=== PATIENT | male | born 1965 | race Caucasian/White ===

== ENCOUNTER 2022-10-13 10:05 | Day surgery (SDC) | payer OTHER, SELFPAY ==
[2022-10-13] VITALS (7 sets, daily range): BP systolic 109–142; BP diastolic 61–86; PULSE 63–68; RESP 16–18; TEMP 36.3–37.1; O2SAT 94–99; BMI 29.1
[2022-10-13] MEDS: Lactated Ringers 1,000 ML 15 ML IV (10:37)
--- NOTE | 2022-10-13 10:38 | HP.PCM_ITS ---
History and Physical Date of Admission: 10/13/22 57 M who presents to the office today for a consult. PMH High Cholesterol managed with Lipitor, Hypertension stable on maxide and amlodipine, GERD taking prilosec. Colon Cancer Patient referred by PCP Dr. Ramires for GERD without esophagitis and for possible EGD and screening colonoscopy. Last EGD/Colonoscopy was on 09/30/16. Patient reports that his GERD is well controlled with omprazole 20 mg QD. Denies any other GI symptoms. States that his last colonoscopy found polyps. ROS Const Constitutional: No fatigue, fever(s), frequent falls, headache(s) or weight change ENT ENT: No headache(s) or difficulty swallowing Cardio Cardiology: No leg pain with exertion Gastro GI: No abdominal pain, bloating, change in bowel habits, constipation, diarrhea, heartburn, difficulty swallowing, Vomiting blood/hematemesis, Blood in stool, nausea/dyspepsia or vomiting Musc Musculoskeletal: No abnormal gait, joint pain, back pain, joint swelling, muscle cramps, muscle weakness, numbness, stiffness, tingling, Arthritis, sciatica, leg pain at night or leg pain with exertion Skin Skin: No dry skin, lesions, itchy eyes or rash Neuro Neurology: No abnormal gait, dizziness, frequent falls, headache(s), numbness, tingling, tremor(s), Increased tone in limbs, paralysis or seizures Psych Psychiatric: No anxiety, No depression, No paranoia, No Behavioral Problems, No Compulsive Behavior, No hyperactivity, No inattentiveness, No obsessions/compulsions, No Temper Tantrums and No suicidal ideation Endo Endocrine: No fatigue or weight change Aller/Imm Allergy/Immunologic: No itchy eyes Larry/Lymp Hematologic/Lymphatic: No easy bleeding or easy bruising Exam Const General: cooperative and comfortable Nutritional Appearance: average body habitus and well nourished [facility] Head: normal to inspection Ears: hearing grossly normal bilaterally Nose: external nose normal Face and sinus: normal facial exam Mouth: oral mucosae normal Throat: posterior oropharynx normal Eyes General: appearance normal, both eyes and all related structures Neck Neck: normal visual inspection Chest Chest palpation & inspection: normal inspection of the chest and normal palpation of entire chest wall Resp Effort & Inspection: normal respiratory effort Auscultation: Bilateral: Clear to Auscultation Cardio Palpation: normal PMI Rate: regular rate Rhythm: regular rhythm GI Inspection: normal to inspection Auscultation: normal bowel sounds Percussion: normal to percussion Palpation: no hepatosplenomegaly Skin General: no rashes or lesions noted Neuro General: patient alert Extrem General: normal to inspection Psych Affect: normal affect Quality Reporting Tobacco Screening ([facility] 138) Smoking Status: Never smoker Assessment and Plan Assessment and Plan (1) FH: colon cancer: Status: Acute Plan: His mother was diagnosed with colon cancer later in life. It was not resectable. He does not have any other family members with colon cancer. His mother also had breast cancer. (2) H/O adenomatous polyp of colon: Status: Acute Plan: On his previous colonoscopy he was discovered to have adenomatous polyps. He will undergo a surveillance colonoscopy. He was explained alternatives, risk, benefits including outstanding bleeding, infection, sepsis, perforation, need for emergent surgery . He will have an ASA of 2. (3) GERD (gastroesophageal reflux disease): Status: Acute
--- NOTE | 2022-10-13 11:49 | OP.CCLET_ITS ---
10/13/2022 Parker Ramires Re : Colonoscopy procedure for Calin Meade Dear Keyla This procedure was performed on Thursday, October 13, 2022. My impressions and recommendations are as follows: Impressions : - Diverticulosis in the recto-sigmoid colon and in the sigmoid colon. - No specimens collected. Recommendations : - Discharge patient to home. - Resume previous diet. - Continue present medications. - Repeat colonoscopy in 10 years for screening purposes. My findings are described in the full procedure note, which is enclosed. If I can be of further assistance, please feel free to contact me at . Sincerely, Alexis Chung, 10/13/2022 11:48:52 AM This report has been signed electronically.
--- NOTE | 2022-10-13 11:49 | OP.COLON_ITS ---
Patient Name: Calin Meade Procedure Date: 10/13/2022 11:19 AM Date of : 1965 Age: 57 Procedure: Colonoscopy Indications: Screening for colorectal malignant neoplasm Providers: Alexis Chung DO Referring MD: Alexis Chung DO Medicines: Monitored Anesthesia Care Patient Profile: This is a 57 year old male. Refer to note in patient chart for documentation of history and physical. Last Colonoscopy: date unknown. Unable to locate last colonoscopy report. Complications: No immediate complications. Procedure: Pre-Anesthesia Assessment: - Prior to the procedure, a History and Physical was performed, and patient medications and allergies were reviewed. The patient is competent. The risks and benefits of the procedure and the sedation options and risks were discussed with the patient. All questions were answered and informed consent was obtained. Patient identification and proposed procedure were verified by the physician in the pre-procedure area. Mental Status Examination: alert and oriented. Airway Examination: normal oropharyngeal airway and neck mobility. CV Examination: normal. Prophylactic Antibiotics: The patient does not require prophylactic antibiotics. Prior Anticoagulants: The patient has taken no anticoagulant or antiplatelet agents. ASA Grade Assessment: II - A patient with mild systemic disease. After reviewing the risks and benefits, the patient was deemed in satisfactory condition to undergo the procedure. The anesthesia plan was to use monitored anesthesia care (MAC). Immediately prior to administration of medications, the patient was re-assessed for adequacy to receive sedatives. The heart rate, respiratory rate, oxygen saturations, blood pressure, adequacy of pulmonary ventilation, and response to care were monitored throughout the procedure. The physical status of the patient was re-assessed after the procedure. After I obtained informed consent, the scope was passed under direct vision. Throughout the procedure, the patient's blood pressure, pulse, and oxygen saturations were monitored continuously. The Colonoscope was introduced through the anus and advanced to the cecum, identified by appendiceal orifice and ileocecal valve. The colonoscopy was performed without difficulty. The patient tolerated the procedure well. The quality of the bowel preparation was good. The ileocecal valve, appendiceal orifice, and rectum were photographed. Scope In: 11:30:43 AM Scope Withdrawal Time 0 hours 9 minutes 48 seconds Scope Out: 11:44:43 AM Total Procedure Duration Time 0 hours 14 minutes 0 seconds Findings: The perianal and digital rectal examinations were normal. A few small-mouthed diverticula were found in the recto-sigmoid colon and sigmoid colon. Impression: - Diverticulosis in the recto-sigmoid colon and in the sigmoid colon. - No specimens collected. Recommendation: - Discharge patient to home. - Resume previous diet. - Continue present medications. - Repeat colonoscopy in 10 years for screening purposes. Procedure Code(s): --- Professional --- G0121, Colorectal cancer screening; colonoscopy on individual not meeting criteria for high risk CPT copyright 2021 [employer]. All rights reserved. The codes documented in this report are preliminary and upon real estate account executive review may be revised to meet current compliance requirements. Alexis Chung DO 10/13/2022 11:48:52 AM This report has been signed electronically. Number of Addenda: 0 Note Initiated On: 10/13/2022 11:19 AM
== END 2022-10-13 12:24 | disposition home or self-care (01) ==
LOC: EN 10:09 → AC 10:12
PROVIDERS: PCP Family Medicine; Referring Provider Family Medicine; Visit Provider Internal Medicine Gastroenterology
PROC: 0DJD8ZZ Inspection of Lower Intestinal Tract, Via Natural or Artificial Opening Endoscopic (ICD-10-PCS; CPT 45378; principal; 2022-10-13 11:10)
DX: K57.30 Diverticulosis of large intestine without perforation or abscess without bleeding (principal); K21.9 Gastro-esophageal reflux disease without esophagitis; E78.00 Pure hypercholesterolemia, unspecified; I10 Essential (primary) hypertension; Z79.899 Other long term (current) drug therapy; Z80.0 Family history of malignant neoplasm of digestive organs
CPT/HCPCS: 45378; J7120; J2405

== ENCOUNTER → 2023-08-14 | Outpatient (CLI) | payer OTHER, SELFPAY ==
--- NOTE | 2023-08-14 14:55 | ECHOCS_ITS ---
Reason For Study: MURMUR Procedure This was a 2D Doppler, Color Flow transthoracic echocardiogram. The study was technically difficult. Contrast injection was performed. Exam performed in department. Left Ventricle Normal LV size. Mild concentric left ventricular hypertrophy. Left ventricular systolic function is normal. The left ventricular ejection fraction is 70 %. Valsalva LV gradient 25 mmHg. No regional wall motion abnormalities noted. Right Ventricle Normal RV size. Normal systolic function. Atria Normal left atrium. Normal right atrium. Bubble contrast study negative for right to left interatrial shunt. Mitral Valve Normal mitral valve. Systolic anterior motion of the mitral valve. Mild (1+) eccentric mitral valve insufficiency. Tricuspid Valve Normal tricuspid valve. Aortic Valve Normal aortic valve. Trisinus/trileaflet aortic valve. Pulmonic Valve Normal pulmonic valve. Great Vessels Normal aortic root. The pulmonary artery is normal size. Inferior vena cava collapse with respiration. Pericardium/Pleural No pericardial effusion. Medication 22 gauge I.V. with prn adaptor inserted into right arm. Diluted definity 1.5ml given slow IV push to enhance endocardial definition. Performed a rapid injection of agitated mix of 9 cc saline and 1cc air to assess for atrial septal defect. MMode/2D Measurements & Calculations LVIDd: 4.0 cm IVSd: 1.2 cm Ao root diam: 3.9 cm LVIDs: 2.3 cm LVPWd: 1.3 cm RVDd: 3.4 cm FS: 41.4 % LAV(MOD-bp): 51.9 ml LVAd ap4: 36.3 cm2 SV(MOD-sp4): 90.0 ml LAV(MOD-bp) Indexed: 24.5 ml/m2 LVLd ap4: 9.3 cm LAV(MOD-sp2): 68.7 ml EDV(MOD-sp4): 122.6 ml LAV(MOD-sp4): 38.2 ml EDV(sp4-el): 120.5 ml LVAs ap4: 16.5 cm2 LVLs ap4: 7.0 cm ESV(MOD-sp4): 32.6 ml ESV(sp4-el): 33.1 ml EF(MOD-sp4): 73.4 % EF(sp4-el): 72.6 % SV(sp4-el): 87.5 ml LA A4 area: 15.2 cm2 LA dimension(2D): 3.4 cm RA A4 area: 10.4 cm2 TAPSE: 2.6 cm Time Measurements MV dec time: 0.21 sec Doppler Measurements & Calculations MV E max jose: 84.9 cm/sec Lat Peak E' Jose: 8.1 cm/sec Med Peak E' Jose: 6.6 cm/sec MV A max jose: 79.9 cm/sec E/E' lat: 10.5 E/E' med: 12.8 MV E/A: 1.1 MV V2 max: 90.2 cm/sec MV dec slope: 398.8 cm/sec2 Ao V2 max: 145.4 cm/sec MV max P.3 mmHg Ao max P.5 mmHg MV V2 mean: 58.1 cm/sec Ao V2 mean: 102.6 cm/sec MV mean P.5 mmHg Ao mean P.8 mmHg MV V2 VTI: 32.9 cm Ao V2 VTI: 32.5 cm AV (velocity ratio): 0.90 LV V1 max: 126.7 cm/sec PA V2 max: 102.6 cm/sec LV V1 max P.4 mmHg PA V2 mean: 67.5 cm/sec LV V1 mean P.2 mmHg LV V1 mean: 96.0 cm/sec LV V1 VTI: 29.2 cm ECHO/Echo Complete W/ Contrast Interpretation Summary Normal LV size. The left ventricular ejection fraction is 70 %. Left ventricular systolic function is normal. Valsalva LV gradient 25 mmHg. Systolic anterior motion of the mitral valve. Mild (1+) eccentric mitral valve insufficiency. Bubble contrast study negative for right to left interatrial shunt. Ordering Physician: Timothy Metcalf Referring Physician: Timothy Metcalf Performed By: Jayne Salinas and Student
== END | disposition home or self-care (01) ==
LOC: CVS 14:56
PROVIDERS: PCP Family Medicine; Referring Provider Internal Medicine Cardiovascular Disease; Visit Provider Internal Medicine Cardiovascular Disease
DX: I35.0 Nonrheumatic aortic (valve) stenosis (principal)
CPT/HCPCS: 93306; Q9957; A4216; C8929

== ENCOUNTER → 2023-09-17 | Outpatient (CLI) | payer OTHER, SELFPAY ==
[2023-09-17 12:43] LABS: Anion Gap 6 (5-15); BUN 16 mg/dL (7-18); BUN/Creat Ratio 13.8 RATIO (10-20); Calcium,Total 9.1 mg/dL (8.5-10.1); Chloride 107 mmol/L (98-107); Creatinine, Serum 1.16 mg/dL (0.70-1.30); EST Glomerular Filtration Rate 69 mL/min (>60); Est Glom Filt Rate - Afr Amer 83 mL/min (>60); Glucose 166 mg/dL (74-106); Potassium 3.5 mmol/L (3.5-5.1); Sodium Level 141 mmol/L (136-145)
== END | disposition home or self-care (01) ==
LOC: LAB 10:45
PROVIDERS: PCP Family Medicine; Referring Provider Internal Medicine Cardiovascular Disease; Visit Provider Internal Medicine Cardiovascular Disease
DX: R94.31 Abnormal electrocardiogram [ECG] [EKG] (principal); I35.0 Nonrheumatic aortic (valve) stenosis
CPT/HCPCS: 36415; 80048

== ENCOUNTER → 2023-09-24 | Outpatient (CLI) | payer OTHER, SELFPAY ==
[2023-09-24 16:15] LABS: Platelet Count 412 K/mm3 (150-450); Reticulocyte Count 1.94 % (0.5-1.5)
[2023-09-24 16:45] LABS: AST(SGOT) 21 U/L (15-37); Alanine Aminotransfer ALT/SGPT 28 U/L (16-61); Albumin, Serum 3.6 g/dL (3.2-5.0); Alkaline Phosphatase 101 U/L (45-117); Anion Gap 6 (5-15); BUN 16 mg/dL (7-18); BUN/Creat Ratio 14.4 RATIO (10-20); CRP 5.63 mg/L (0.0-3.0); Calcium,Total 8.4 mg/dL (8.5-10.1); Chloride 105 mmol/L (98-107); Creatinine, Serum 1.11 mg/dL (0.70-1.30); EST Glomerular Filtration Rate 72 mL/min (>60); Est Glom Filt Rate - Afr Amer 87 mL/min (>60); Ferritin 9 ng/mL (26-388); Globulin 3.5 g/dL (2.2-4.2); Glucose 106 mg/dL (74-106); Iron 34 ug/dL (65-175); Iron Binding Capacity,Total 445 ug/dL (250-450); LDH 200 U/L (87-241); Potassium 3.3 mmol/L (3.5-5.1); Protein, Total 7.1 g/dL (6.4-8.2); Sodium Level 139 mmol/L (136-145)
[2023-09-24 18:24] LABS: Erythrocyte Sedimentation Rate 3 mm/hr (0-20)
== END | disposition home or self-care (01) ==
LOC: LAB 15:17
PROVIDERS: PCP Family Medicine; Referring Provider Internal Medicine Gastroenterology; Visit Provider Internal Medicine Gastroenterology
DX: D64.9 Anemia, unspecified (principal)
CPT/HCPCS: 36415; 80053; 82248; 82728; 82784; 82785; 82941; 83010; 83021; 83516; 83540; 83550; 83615; 84165; 85045; 85652; 85660; 86140; 86256; 86334; 86340; 86880

== ENCOUNTER 2023-09-30 05:56 | Day surgery (SDC) | payer OTHER, SELFPAY ==
[2023-09-30] VITALS (7 sets, daily range): BP systolic 98–145; BP diastolic 62–93; PULSE 69–82; RESP 16; TEMP 36.4–36.6; O2SAT 92–96; BMI 28.3
--- NOTE | 2023-09-30 | EGD_PTH ---
PATIENT: YESICA AVINA LOC: [facility] U#:[id number] AGE/SX: 58/M ROOM: RE09/30/[address]: Dr. Alexis Chung DO : 1965 BED: DIS: 09/30/2023 SPEC #: [id number] RECD: 09/30/23 10:24 STATUS: ANA DARIEL #: [id number] EARLINE: 09/30/23 00:[address]: Alexis Chung DEPT: SURGICAL PATHOLOGY RECD BY: Baldemar Hinojosa ENTERED: 09/30/23 11:51 SP TYPE: EGD BIOPSY CATHLEEN DR: Dr. Parker Ramires DO Tissues: Gastric mucous membrane Procedures: Surgery Specimen Level IV HEADER OPERATION: EGD biopsy PRE-OP DIAGNOSIS: Anemia TISSUE SUBMITTED: Gastric antral polyp biopsy MICROSCOPIC DIAGNOSIS Gastric antral polyp, biopsy: Fragments of hyperplastic/inflammatory polyp with focal ulceration. See comment. FABRICE/ 10/01/2023 COMMENT The results of immunohistochemistry for Helicobacter pylori will be reported separately ([id number]). MICROSCOPIC DESCRIPTION Slides are reviewed. GROSS DESCRIPTION Received in fixative is one container labeled with the patient's name and designated Gastric antral polyp biopsy. The specimen consists of multiple irregular fragments of light garcia soft tissue that in aggregate measure 1.0 x 0.3 x 0.1 cm. The specimen is totally submitted in one cassette. 09/30/2023 TC:5 CPT:87673
[2023-09-30] MEDS: Lactated Ringers 1,000 ML 15 ML IV (06:26)
--- NOTE | 2023-09-30 06:32 | HP.PCM_ITS ---
History and Physical Date of Admission: 09/30/23 YESICA AVINA, is a 58 M who presents to the office today for follow up. PMH High Cholesterol managed with Lipitor, Hypertension stable on maxide and amlodipine, GERD taking prilosec. Colon Cancer Patient referred by PCP Dr. Ramires for GERD without esophagitis and for possible EGD and screening colonoscopy. Last EGD/Colonoscopy was on 09/30/16. Patient reports that his GERD is well controlled with omprazole 20 mg QD. Denies any other GI symptoms. States that his last colonoscopy found polyps. Colonoscopy 10.14.23 Diverticulosis in the recto-sigmoid colon and in the sigmoid colon. No specimens collected. OV 09.24.23 pt states that he is feeling well overall and denies GI symptoms of concern at this time. pt reports regular bm; denies blood in the stool. Pt states that he was referred by Dr Ramires for a low iron. ROS Const Constitutional: Positive for fatigue; No fever(s) or weight change ENT ENT: No difficulty swallowing Gastro GI: No abdominal pain, belching, bloating, change in bowel habits, change in stool character, coffee ground emesis, constipation, cramping, diarrhea, heartburn, difficulty swallowing, feeling full early, excessive flatus, incontinent of stools, Vomiting blood/hematemesis, Blood in stool, loose stools, Black,tarry stools, nausea/dyspepsia, pain with swallowing, vomiting or other Musc Musculoskeletal: No joint pain Skin Skin: No yellowing of the eye or itchy eyes Psych Psychiatric: No anxiety and No depression Endo Endocrine: Positive for fatigue; No weight change Aller/Imm Allergy/Immunologic: No itchy eyes Larry/Lymp Hematologic/Lymphatic: No easy bleeding or easy bruising Exam Const General: cooperative and comfortable Nutritional Appearance: average body habitus and well nourished [facility] Head: normal to inspection Ears: hearing grossly normal bilaterally Nose: external nose normal Face and sinus: normal facial exam Mouth: oral mucosae normal Throat: posterior oropharynx normal Eyes General: appearance normal, both eyes and all related structures Neck Neck: normal visual inspection Chest Chest palpation & inspection: normal inspection of the chest and normal palpation of entire chest wall Resp Effort & Inspection: normal respiratory effort Auscultation: Bilateral: Clear to Auscultation Cardio Palpation: normal PMI Rate: regular rate Rhythm: regular rhythm Other: 3 out of 6 systolic ejection murmur GI Inspection: normal to inspection Auscultation: normal bowel sounds Percussion: normal to percussion Palpation: no hepatosplenomegaly Skin General: no rashes or lesions noted Neuro General: patient alert Extrem General: normal to inspection Psych Affect: normal affect Assessment and Plan Assessment and Plan (1) Anemia: Status: Acute Comment: SMALL RBC'S NO ANEMIA Plan: 58-year-old gentleman with history of systolic ejection murmur secondary to aortic stenosis and LVH on VERNON inhibitor. He also has a history of iron deficiency anemia possibly secondary to angiodysplastic lesions that was dis covered about 15 years ago. Recommendations for him are upper endoscopy to evaluate his upper GI tract and capsule endoscopy. He will also get biochemical workup for his iron deficiency anemia. Orders: Orders Iron Today D64.9 - Anemia, unspecified RENE + Protein Elect, Serum Today D64.9 - Anemia, unspecified Iron Binding Capacity,Total Today D64.9 - Anemia, unspecified LDH Today D64.9 - Anemia, unspecified Ferritin Today D64.9 - Anemia, unspecified Haptoglobin Today D64.9 - Anemia, unspecified Retic Panel Count Today D64.9 - Anemia, unspecified ANCA Today D64.9 - Anemia, unspecified CRP Today D64.9 - Anemia, unspecified Erythrocyte Sed Rate Today D64.9 - Anemia, unspecified Immunoglobulins G/A/M/E Today D64.9 - Anemia, unspecified Anti-Parietal Cell AB, QN Today D64.9 - Anemia, unspecified Gastrin, Serum Today D64.9 - Anemia, unspecified Intrinsic Factor Ab Today D64.9 - Anemia, unspecified Hemoglobinopathy Profile Today D64.9 - Anemia, unspecified OFI Hemoglobin Electrophoresis Today D64.9 - Anemia, unspecified Direct Antiglobulin Alfredo JEFF Today D64.9 - Anemia, unspecified Bilirubin, Direct Today D64.9 - Anemia, unspecified Comprehensive Metabolic Profil Today D64.9 - Anemia, unspecified I have examined the patient and the H&P has been reviewed. There are no clinical changes since date of exam.
--- NOTE | 2023-09-30 06:36 | PCM.PRE.AN2 ---
ASA Classification* ASA Classification ASA Classification: 3 Assessment & Plan Anesthesia* Anesthesia Assessment Anesthesia Assessment: Discussed sedation and/or anesthesia options, risks, benefits, and alternatives with patient/parents/legal guardian/POA. Questions invited. The patient/parents/legal guardian/POA seems to understand and agrees to proceed with anesthesia plan. Reviewed the physical assessment, medical history, allergy history and patient home medications list prior to surgery/procedure/anesthetic and documented any changes. Performed airway and anesthesia risk assessments. Anesthesia Type Anesthesia Type: MAC Anesthesia Focused Assessment* Temperature: 97.9 F Pulse Rate: 69 Blood Pressure: 145/75 Respiratory Rate: 16 Pulse Ox: 96 Airway Assessment Mouth opens: >3 cm Mallampati Score: II Focused Labs Anesthesia Preop lab: CBC CHEMISTRY Potassium 3.3 mmol/L (3.5-5.1) L 09/24/23 15:28 Sodium 139 mmol/L (136-145) 09/24/23 15:28 BUN 16 mg/dL (7-18) 09/24/23 15:28 Creatinine 1.11 mg/dL (0.70-1.30) 09/24/23 15:28 Glucose 106 mg/dL (74-106) 09/24/23 15:28 COAG Pre-Assessment Diagnosis/Proposed Procedure Planned Operative Procedure(s): EGD Anesthesia History Anesthesia History - architect internship: Anesthesia History - architect internship Hx Hospitalization No 09/29/23 10:23 Any Problems With Anesthesia No 09/29/23 10:23 Cholinesterase deficiency No 09/29/23 10:23 You/Your Family Experience No 09/29/23 10:23 fever (hyperthermia) with Relationship Recent Exposure to Contagious No 09/30/23 06:23 Disease Does patient have nerve No 09/29/23 10:23 stimulator Patient instructed to have device shut off --Does patient have Pacemaker No 09/30/23 06:23 or ICD? When Was Last Pacemaker Check QUESTION #4 FULL TEXT: You/Your Family Experience fever (hyperthermia) with Anesthesia Last Oral Intake Last Oral intake: Last Oral Intake NPO since 22:00 09/30/23 06:23 Meds taken in AM with sips of No 09/30/23 06:23 water? Meds patient instructed to take am of surgery PONV PONV - architect internship: PONV - architect internship Female No 09/29/23 10:23 HX of Motion Sickness No 09/29/23 10:23 HX of N/V After Surgery No 09/29/23 10:23 Non-Smoker Yes 09/29/23 10:23 Duration of Surgery greater No 09/29/23 10:23 than 60 minutes Number of Risk Factors 1 09/29/23 10:23 PONV Score Low Risk 09/29/23 10:23 Height & Weight Height & Weight: Anesthesia: Height & Weight Height 5 ft 11 in 09/30/23 06:23 Weight: 92 kg 09/30/23 06:23 Body Mass Index (BMI) 28.3 09/30/23 06:23 Respiratory Assessment Respiratory Assessment - architect internship: Respiratory Tract Infection Hx - architect internship Hx Respiratory Tract Infection No 09/29/23 10:23 STOP Sleep Apnea STOP Sleep Apnea - architect internship: STOP Sleep Apnea - architect internship Hx Hypertension Yes: CONTROLLED WITH MEDS 09/29/23 10:23 Hx Sleep Apnea No 09/29/23 10:23 CPAP BIPAP Do you snore loudly (louder No 09/29/23 10:23 than talking or can be heard Do you often feel tired/ No 09/29/23 10:23 fatigued/ sleepy during daytime? Has anyone observed you stop No 09/29/23 10:23 breathing during sleep? STOP Results Negative 09/29/23 10:23 QUESTION #5 FULL TEXT : Do you snore loudly (louder than talking or can be heard through closed doors)? Tobacco Use History Tobacco Use History - architect internship: Tobacco Use History - architect internship Tobacco Use Smoking Status Never smoker 09/29/23 10:23 Hx Tobacco Use No 09/29/23 10:23 Years Smoking Packs Smoked per Day Smoking Cessation Date was within the last 15 years Hx Smoking Cessation Date Hx Smoking Cessation Counseling Hematologic Medial History Hematologic Hx - architect internship: Hematologic Medical Hx - memory care program resident Hx of Blood Transfusion No 09/29/23 10:23 Hx of Transfusion in last 3 No 09/29/23 10:23 Months Date of Last Transfusion (if within last 3 months) Ever experience any problems No 09/29/23 10:23 with transfusion(s)? Specify any problems Hx of Preganancy in last 3 N/A 08/13/24 10:23 Months Nurse Filling Out Transfusion NBUCHER 09/29/23 10:23 & Questions: Date: 09/29/23 09/29/23 10:23 Time: 10:24 09/29/23 10:23 Patient unable to answer at this time (ie. confused, unrespo /Reproduction History /Reproductive History - architect internship: /Reproductive Hx- architect internship Hx Now No 09/29/23 10:23 Gestational Age (in weeks): EDC: Hx Hx Para Hx Section SAB No 09/29/23 10:23 Active Medications Active Medications: Current Medications Generic Name Dose Route Start Last Admin Trade Name Freq PRN Reason Stop Dose Admin Lactated Ringer's 1,000 mls @ 15 mls/hr 09/30/23 06:15 09/30/23 06:26 IV 15 mls/hr .Q48H NAILA Administration PFSH Medical History History of echocardiogram Cardiology follow-up encounter Upper GI bleed Hyperglycemia Mild aortic stenosis Abnormal EKG Anemia Hypertriglyceridemia Diverticular disease GERD (gastroesophageal reflux disease) Essential (primary) hypertension Mixed hyperlipidemia Home Medications ?Medication ?Instructions ?Recorded ?Last Taken ?Type atorvastatin 10 mg tablet 10 mg PO DAILY 07/23/22 09/29/23 History omeprazole 20 mg capsule,delayed 20 mg PO DAILY 07/23/22 09/29/23 History release amlodipine 5 mg tablet 10 mg PO DAILY 08/07/23 09/29/23 History losartan 50 mg tablet 50 mg PO DAILY #30 tabs 08/14/23 09/29/23 Rx ferrous sulfate 27 mg iron tablet 27 mg PO BID 09/04/23 09/26/23 History triamterene 75 0.5 tab PO DAILY 09/04/23 09/29/23 History mg-hydrochlorothiazide 50 mg tablet Allergy/AdvReac Type Severity Reaction Status Date / Time No Known Allergies Allergy Verified 09/30/23 06:18 Family History Mother Colon cancer CAD (coronary artery disease) Hypertension Breast cancer Father COPD (chronic obstructive pulmonary disease) Surgical History History of colonoscopy H/O hand surgery Social History Smoking Status: Never smoker alcohol intake: current alcohol intake frequency: other substance use type: does not use caffeine: No Review of Systems (Anesthesia) ROS Narrative System reviewed and no additional complaints, except as documented.
--- NOTE | 2023-09-30 07:00 | IMM_PTH ---
PATIENT: YESICA AVINA LOC: [facility] U#:[id number] AGE/SX: 58/M ROOM: RE09/30/[address]: Dr. Alexis Chung DO : 1965 BED: DIS: 09/30/2023 SPEC #: [id number] RECD: 09/30/23 11:23 STATUS: ANA REQ #: [id number] EARLINE: 09/30/23 07:[address]: Alexis Chung DEPT: IMMUNOHISTOCHEMISTRY RECD BY: Ernst Barber ENTERED: 09/30/23 11:23 SP TYPE: IMMUNO OTHR DR: Dr. Parker Ramires DO Tissues: Gastric mucous membrane Procedures: H Pylori (initial) PHYSICIAN & INSTITUTION [place] [id number] SPECIMEN INFORMATION: Tissue Source: Gastric antral polyp biopsy Clinical Info: Anemia Specimen Number: [id number] CPT code: 54044 METHODOLOGY: Deparaffinized sections of prefer/formalin-fixed tissue or PAP/DQ stained slides are incubated with monoclonal/polyclonal antibodies/oligonucleotide probes. Localization is made via biotin free immunoperoxidase method. Appropriate controls are performed and reacted as expected. Results on target cell population are indicated in the following table: RESULTS: ANTIBODY / CLONE RESULT H Pylori (polyclonal) negative These tests were developed and their performance characteristics determined by [facility]. They may not have been cleared or approved by the U.S. Food and Drug Administration. The FDA has determined that such clearance or approval is not necessary. The above immunohistochemical/dualISH markers are ordered and reviewed by the Pathologist. INTERPRETATION: Gastric antral polyp, biopsy: Negative for Helicobacter pylori organisms. FABRICE/ 10/01/2023
--- NOTE | 2023-09-30 07:35 | PCM.POST.ANE ---
Anesthesia: Postop Eval I Current Vital Signs Temperature: 97.8 F Pulse Rate: 76 Blood Pressure: 119/93 Respiratory Rate: 16 Pulse Ox: 93 Oxygen Delivery Method: Room Air Assessment Airway patent: Yes Spontaneous unlabored respirations: Yes Mental status: Awake and Calm nausea: No Vomiting: No Anesthesia Complication: No Fluid Hydration Crystalloid volume administer (ml): 400 Total IV fluid infused: 400 Progress Note Anesthesia document: Postop Eval 1 completed: Yes
--- NOTE | 2023-09-30 07:37 | OP.EGD_ITS ---
Patient Name: Calin Meade Procedure Date: 09/30/2023 7:05 AM Date of : 1965 Age: 58 Procedure: Upper GI endoscopy Indications: Iron deficiency anemia Providers: DO Jessica Sheffield MD: Parker Ramires Medicines: Monitored Anesthesia Care Patient Profile: This is a 58 year old male. Refer to note in patient chart for documentation of history and physical. Patient has symptoms of chronic dyspepsia. Complications: No immediate complications. Procedure: Pre-Anesthesia Assessment: - Prior to the procedure, a History and Physical was performed, and patient medications and allergies were reviewed. The patient is competent. The risks and benefits of the procedure and the sedation options and risks were discussed with the patient. All questions were answered and informed consent was obtained. Patient identification and proposed procedure were verified by the physician in the pre-procedure area. Mental Status Examination: alert and oriented. Airway Examination: normal oropharyngeal airway and neck mobility. Respiratory Examination: clear to auscultation. CV Examination: normal. Prophylactic Antibiotics: The patient does not require prophylactic antibiotics. Prior Anticoagulants: The patient has taken no anticoagulant or antiplatelet agents except for NSAID medication. ASA Grade Assessment: III - A patient with severe systemic disease. After reviewing the risks and benefits, the patient was deemed in satisfactory condition to undergo the procedure. The anesthesia plan was to use monitored anesthesia care (MAC). Immediately prior to administration of medications, the patient was re-assessed for adequacy to receive sedatives. The heart rate, respiratory rate, oxygen saturations, blood pressure, adequacy of pulmonary ventilation, and response to care were monitored throughout the procedure. The physical status of the patient was re-assessed after the procedure. After obtaining informed consent, the endoscope was passed under direct vision. Throughout the procedure, the patient's blood pressure, pulse, and oxygen saturations were monitored continuously. The Endoscope was introduced through the mouth, and advanced to the second part of duodenum. The upper GI endoscopy was accomplished without difficulty. The patient tolerated the procedure well. Scope In: 7:16:47 AM Scope Out: 7:25:34 AM Total Procedure Duration Time 0 hours 8 minutes 47 seconds Findings: Small (< 5 mm) varices were found in the lower third of the esophagus. They were 5 mm in largest diameter. Multiple 35 mm pedunculated and sessile polyps with bleeding and stigmata of recent bleeding were found in the cardia, in the gastric fundus, in the gastric body, on the greater curvature of the stomach and in the gastric antrum. Biopsies were taken with a cold forceps for histology. Verification of patient identification for the specimen was done. Estimated blood loss was minimal. No gross lesions were noted in the first portion of the duodenum. Impression: - Small (< 5 mm) esophageal varices. - Multiple gastric polyps. Biopsied. - No gross lesions in the first portion of the duodenum. Recommendation: - Discharge patient to home. - Resume previous diet. - Continue present medications. - Await pathology results. - Repeat upper endoscopy in 2 month for retreatment. Removal of these will take about an hour and a half. -Ultrasound of the liver and CT scan abdomen pelvis -Possible genetic testing depending on the etiology of the gastric polyps. If it is hyperplastic then these can be removed endoscopically. If they are adenomas or hamartomas they can also be removed endoscopically but he would need to undergo genetic testing. Procedure Code(s): --- Professional --- 89636, Esophagogastroduodenoscopy, flexible, transoral; with biopsy, single or multiple CPT copyright 2021 [employer]. All rights reserved. The codes documented in this report are preliminary and upon drupal programmer review may be revised to meet current compliance requirements. Alexis Chung DO 09/30/2023 7:36:37 AM This report has been signed electronically. Number of Addenda: 0 Note Initiated On: 09/30/2023 7:05 AM
--- NOTE | 2023-09-30 07:37 | OP.CCLET_ITS ---
09/30/2023 Parker Ramires Re : Upper GI endoscopy procedure for Calin Henriquezforrest Ramires This procedure was performed on Saturday, September 30, 2023. My impressions and recommendations are as follows: Impressions : - Small (< 5 mm) esophageal varices. - Multiple gastric polyps. Biopsied. - No gross lesions in the first portion of the duodenum. Recommendations : - Discharge patient to home. - Resume previous diet. - Continue present medications. - Await pathology results. - Repeat upper endoscopy in 2 month for retreatment. Removal of these will take about an hour and a half. -Ultrasound of the liver and CT scan abdomen pelvis -Possible genetic testing depending on the etiology of the gastric polyps. If it is hyperplastic then these can be removed endoscopically. If they are adenomas or hamartomas they can also be removed endoscopically but he would need to undergo genetic testing. My findings are described in the full procedure note, which is enclosed. If I can be of further assistance, please feel free to contact me at . Sincerely, Alexis Chung, 09/30/2023 7:36:37 AM This report has been signed electronically.
--- NOTE | 2023-09-30 08:26 | PCM.POSTANE2 ---
Anesthesia Postop Eval I Sum Postop Eval Completion status Anesthesia document: Postop Eval 1 completed: Yes Anesthesia Postop Eval I Summary Anesthesia Postop Eval I Summary: Anesthesia Postop Eval I: Assessment Summary Airway patent Yes 09/30/23 07:36 [email or web address] Spontaneous unlabored Yes 09/30/23 07:36 [email or web address] respirations Mental status Awake,Calm 09/30/23 07:36 [email or web address] nausea No 09/30/23 07:36 [email or web address] Vomiting No 09/30/23 07:36 [email or web address] Anesthesia Postop Eval I: Fluid Summary Crystalloid volume administer 400 09/30/23 07:36 [email or web address] (ml) Colloids volume administered ( ml) Blood Product volume administered (ml) Total IV fluid infused 400 09/30/23 07:36 [email or web address] Anesthesia Postop Eval I: Summary Notes Anesthesia Complication No 09/30/23 07:36 [email or web address] Anesthesia Complication Comment: Post-operative progress note Anesthesia: Postop Eval II Evaluation Mental status: Awake Pain Level: 0 nausea: No Vomiting: No Complications Anesthesia Complication: No
== END 2023-09-30 08:11 | disposition home or self-care (01) ==
LOC: EN 05:56 → AC 05:57
PROVIDERS: PCP Family Medicine; Referring Provider Family Medicine; Visit Provider Internal Medicine Gastroenterology
PROC: 0DJ08ZZ Inspection of Upper Intestinal Tract, Via Natural or Artificial Opening Endoscopic (ICD-10-PCS; CPT 43235; principal; 2023-09-30 06:55)
DX: K31.7 Polyp of stomach and duodenum (principal); I85.00 Esophageal varices without bleeding; D50.9 Iron deficiency anemia, unspecified; E78.00 Pure hypercholesterolemia, unspecified; I10 Essential (primary) hypertension; K21.9 Gastro-esophageal reflux disease without esophagitis; Z79.899 Other long term (current) drug therapy
CPT/HCPCS: 43239; 88305; 88342; J7120; J2405

== ENCOUNTER 2023-10-26 05:28 | Day surgery (SDC) | payer OTHER, SELFPAY ==
[2023-10-26] VITALS (7 sets, daily range): BP systolic 85–141; BP diastolic 56–78; PULSE 65–76; RESP 14–18; TEMP 36.2–36.7; O2SAT 91–98; BMI 29.2
--- NOTE | 2023-10-26 | IMM_PTH ---
PATIENT: YESICA AVINA LOC: [facility] U#:[id number] AGE/SX: 58/M ROOM: RE10/26/[address]: Dr. Alexis Chung DO : 1965 BED: DIS: 10/26/2023 SPEC #: [id number] RECD: 10/27/23 11:07 STATUS: ANA REBeverly #: [id number] EARLINE: 10/26/23 00:[address]: Alexis Chung DEPT: IMMUNOHISTOCHEMISTRY RECD BY: Ernst Barber ENTERED: 10/27/23 11:07 SP TYPE: IMMUNO OTHR DR: Dr. Parker Ramires DO Tissues: POLYP Procedures: H Pylori (initial) PHYSICIAN & INSTITUTION [place] [id number] SPECIMEN INFORMATION: Tissue Source: Gastric polyps Clinical Info: Anemia Specimen Number: [id number] CPT code: 16282 METHODOLOGY: Deparaffinized sections of prefer/formalin-fixed tissue or PAP/DQ stained slides are incubated with monoclonal/polyclonal antibodies/oligonucleotide probes. Localization is made via biotin free immunoperoxidase method. Appropriate controls are performed and reacted as expected. Results on target cell population are indicated in the following table: RESULTS: Block - 5 ANTIBODY / CLONE RESULT H Pylori (polyclonal) negative These tests were developed and their performance characteristics determined by [facility]. They may not have been cleared or approved by the U.S. Food and Drug Administration. The FDA has determined that such clearance or approval is not necessary. The above immunohistochemical/dualISH markers are ordered and reviewed by the Pathologist. INTERPRETATION: Gastric polyps, polypectomy: Negative for Helicobacter pylori organisms. FABRICE/ 10/28/2023
[2023-10-26] MEDS: Lactated Ringers 1,000 ML 15 ML IV (06:11)
--- NOTE | 2023-10-26 06:30 | POL_PTH ---
PATIENT: YESICA AVINA LOC: [facility] U#:[id number] AGE/SX: 58/M ROOM: RE10/26/[address]: Dr. Alexis Chung DO : 1965 BED: DIS: 10/26/2023 SPEC #: [id number] RECD: 10/26/23 12:27 STATUS: ANA DARIEL #: [id number] EARLINE: 10/26/23 06:[address]: Alexis Chung DEPT: SURGICAL PATHOLOGY RECD BY: Baldemar Hinojosa ENTERED: 10/26/23 13:14 SP TYPE: Polyp OTHR DR: Dr. Parker Ramires DO Tissues: POLYP Procedures: Surgery Specimen Level IV HEADER OPERATION: EGD with polypectomy and hemastasis PRE-OP DIAGNOSIS: Anemia TISSUE SUBMITTED: Gastric polyps MICROSCOPIC DIAGNOSIS Gastric polyps, polypectomy: Fragments of hyperplastic/inflammatory polyps. See comment. FABRICE/ 10/27/2023 COMMENT The results of immunohistochemistry for Helicobacter pylori will be reported separately ([id number]). MICROSCOPIC DESCRIPTION Slides are reviewed. GROSS DESCRIPTION Received in fixative is one container labeled with the patient's name and designated Gastric polyps. The specimen consists of multiple fragments of garcia-pink congested polyp measuring in aggregate 5.0 x 7.0 x 0.8cm. Largest fragment measures 4.0cm in greatest dimension. Large polyps are bisected or serially sectioned. The entire specimen is submitted in nine cassettes. FABRICE/ 10/26/2023 TC:5 CPT:64407
--- NOTE | 2023-10-26 06:31 | PRE.ANES_ITS ---
ASA Classification* ASA Classification ASA Classification: 2 Assessment & Plan Anesthesia* Anesthesia Assessment Anesthesia Assessment: Discussed sedation and/or anesthesia options, risks, benefits, and alternatives with patient/parents/legal guardian/POA. Questions invited. The patient/parents/legal guardian/POA seems to understand and agrees to proceed with anesthesia plan. Reviewed the physical assessment, medical history, allergy history and patient home medications list prior to surgery/procedure/anesthetic and documented any changes. Performed airway and anesthesia risk assessments. Anesthesia Type Anesthesia Type: MAC Anesthesia Focused Assessment* Temperature: 98.1 F Pulse Rate: 76 Blood Pressure: 141/78 Respiratory Rate: 14 Pulse Ox: 98 Airway Assessment Mouth opens: >3 cm Mallampati Score: II Focused Labs Anesthesia Preop lab: CBC CHEMISTRY Potassium 3.3 mmol/L (3.5-5.1) L 09/24/23 15:28 Sodium 139 mmol/L (136-145) 09/24/23 15:28 BUN 16 mg/dL (7-18) 09/24/23 15:28 Creatinine 1.11 mg/dL (0.70-1.30) 09/24/23 15:28 Glucose 106 mg/dL (74-106) 09/24/23 15:28 COAG Pre-Assessment Diagnosis/Proposed Procedure Planned Operative Procedure(s): EGD, Polyp Removal Anesthesia History 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 When Was Last Pacemaker Check QUESTION #4 FULL TEXT: You/Your Family Experience fever (hyperthermia) with Anesthesia Last Oral Intake Last Oral intake: Last Oral Intake NPO since 00:00 10/26/23 06:09 Meds taken in AM with sips of Yes 10/26/23 06:09 water? Meds patient instructed to amlodipine 10/26/23 06:09 take am of surgery PONV PONV - entry level web developer: PONV - entry level web developer Female No 10/21/23 11:58 HX of Motion Sickness No 10/21/23 11:58 HX of N/V After Surgery No 10/21/23 11:58 Non-Smoker Yes 10/21/23 11:58 Duration of Surgery greater No 10/21/23 11:58 than 60 minutes Number of Risk Factors 1 10/21/23 11:58 PONV Score Low Risk 10/21/23 11:58 Height & Weight Height & Weight: Anesthesia: Height & Weight Height 5 ft 11 in 10/26/23 06:09 Weight: 95.1 kg 10/26/23 06:09 Body Mass Index (BMI) 29.2 10/26/23 06:09 Respiratory Assessment Respiratory Assessment - entry level web developer: Respiratory Tract Infection Hx - entry level web developer Hx Respiratory Tract Infection No 10/21/23 11:58 STOP Sleep Apnea STOP Sleep Apnea - entry level web developer: STOP Sleep Apnea - entry level web developer Hx Hypertension Yes: CONTROLLED WITH MEDS 10/21/23 11:58 Hx Sleep Apnea No 10/21/23 11:58 CPAP BIPAP Do you snore loudly (louder No 10/21/23 11:58 than talking or can be heard Do you often feel tired/ No 10/21/23 11:58 fatigued/ sleepy during daytime? Has anyone observed you stop No 10/21/23 11:58 breathing during sleep? STOP Results Negative 10/21/23 11:58 QUESTION #5 FULL TEXT : Do you snore loudly (louder than talking or can be heard through closed doors)? Tobacco Use History Tobacco Use History - entry level web developer: Tobacco Use History - entry level web developer Tobacco Use Smoking Status Never smoker 10/21/23 11:58 Hx Tobacco Use No 10/21/23 11:58 Years Smoking Packs Smoked per Day Smoking Cessation Date was within the last 15 years Hx Smoking Cessation Date Hx Smoking Cessation Counseling Hematologic Medial History Hematologic Hx - entry level web developer: Hematologic Medical Hx - government clerk Hx of Blood Transfusion No 10/21/23 11:58 Hx of Transfusion in last 3 No 10/21/23 11:58 Months Date of Last Transfusion (if within last 3 months) Ever experience any problems No 10/21/23 11:58 with transfusion(s)? Specify any problems Hx of Preganancy in last 3 N/A 10/21/23 11:58 Months Nurse Filling Out Transfusion VCHRISTIN 10/21/23 11:58 & Questions: Date: 10/21/23 10/21/23 11:58 Time: 11:59 10/21/23 11:58 Patient unable to answer at this time (ie. confused, unrespo /Reproduction History /Reproductive History - entry level web developer: /Reproductive Hx- entry level web developer Hx Now Gestational Age (in weeks): EDC: Hx Hx Para Hx Section SAB No 10/21/23 11:58 Active Medications Active Medications: Current Medications Generic Name Dose Route Start Last Admin Trade Name Freq PRN Reason Stop Dose Admin Lactated Ringer's 1,000 mls @ 15 mls/hr 10/26/23 06:15 10/26/23 06:11 IV 15 mls/hr .Q48H NAILA Administration PFSH Medical History History of echocardiogram Cardiology follow-up encounter Upper GI bleed Hyperglycemia Mild aortic stenosis Abnormal EKG Anemia Hypertriglyceridemia Diverticular disease GERD (gastroesophageal reflux disease) Essential (primary) hypertension Mixed hyperlipidemia Home Medications ?Medication ?Instructions ?Recorded ?Last Taken ?Type atorvastatin 10 mg tablet 10 mg PO DAILY 07/23/22 10/25/23 History omeprazole 20 mg capsule,delayed 20 mg PO DAILY 07/23/22 10/25/23 History release amlodipine 5 mg tablet 10 mg PO DAILY 08/07/23 10/26/23 History losartan 50 mg tablet 50 mg PO DAILY #30 tabs 08/14/23 10/25/23 Rx ferrous sulfate 27 mg iron tablet 27 mg PO BID 09/04/23 10/22/23 History triamterene 75 0.5 tab PO DAILY 09/04/23 10/25/23 History mg-hydrochlorothiazide 50 mg tablet Allergy/AdvReac Type Severity Reaction Status Date / Time No Known Allergies Allergy Verified 10/21/23 11:55 Family History Mother Colon cancer CAD (coronary artery disease) Hypertension Breast cancer Father COPD (chronic obstructive pulmonary disease) Surgical History (Updated 10/21/23 @ 11:58 by Shasta Null) Hx of esophagogastroduodenoscopy History of colonoscopy H/O hand surgery Social History Smoking Status: Never smoker alcohol intake: current alcohol intake frequency: other substance use type: does not use caffeine: No Review of Systems (Anesthesia) ROS Narrative System reviewed and no additional complaints, except as documented.
--- NOTE | 2023-10-26 06:39 | PCM.HP.BLA ---
History and Physical Date of Admission: 10/26/23 YESICA AVINA, is a 58 M who presents to the office today for follow up. PMH High Cholesterol managed with Lipitor, Hypertension stable on maxide and amlodipine, GERD taking prilosec. Colon Cancer Patient referred by PCP Dr. Ramires for GERD without esophagitis and for possible EGD and screening colonoscopy. Last EGD/Colonoscopy was on 09/30/16. Patient reports that his GERD is well controlled with omprazole 20 mg QD. Denies any other GI symptoms. States that his last colonoscopy found polyps. Colonoscopy 10.14.23 Diverticulosis in the recto-sigmoid colon and in the sigmoid colon. No specimens collected. OV 09.24.23 pt states that he is feeling well overall and denies GI symptoms of concern at this time. pt reports regular bm; denies blood in the stool. Pt states that he was referred by Dr Ramires for a low iron. ROS Const Constitutional: Positive for fatigue; No fever(s) or weight change ENT ENT: No difficulty swallowing Gastro GI: No abdominal pain, belching, bloating, change in bowel habits, change in stool character, coffee ground emesis, constipation, cramping, diarrhea, heartburn, difficulty swallowing, feeling full early, excessive flatus, incontinent of stools, Vomiting blood/hematemesis, Blood in stool, loose stools, Black,tarry stools, nausea/dyspepsia, pain with swallowing, vomiting or other Musc Musculoskeletal: No joint pain Skin Skin: No yellowing of the eye or itchy eyes Psych Psychiatric: No anxiety and No depression Endo Endocrine: Positive for fatigue; No weight change Aller/Imm Allergy/Immunologic: No itchy eyes Larry/Lymp Hematologic/Lymphatic: No easy bleeding or easy bruising Exam Const General: cooperative and comfortable Nutritional Appearance: average body habitus and well nourished [facility] Head: normal to inspection Ears: hearing grossly normal bilaterally Nose: external nose normal Face and sinus: normal facial exam Mouth: oral mucosae normal Throat: posterior oropharynx normal Eyes General: appearance normal, both eyes and all related structures Neck Neck: normal visual inspection Chest Chest palpation & inspection: normal inspection of the chest and normal palpation of entire chest wall Resp Effort & Inspection: normal respiratory effort Auscultation: Bilateral: Clear to Auscultation Cardio Palpation: normal PMI Rate: regular rate Rhythm: regular rhythm Other: 3 out of 6 systolic ejection murmur GI Inspection: normal to inspection Auscultation: normal bowel sounds Percussion: normal to percussion Palpation: no hepatosplenomegaly Skin General: no rashes or lesions noted Neuro General: patient alert Extrem General: normal to inspection Psych Affect: normal affect Assessment and Plan Assessment and Plan (1) Anemia: Status: Acute Comment: SMALL RBC'S NO ANEMIA Plan: 58-year-old gentleman with history of systolic ejection murmur secondary to aortic stenosis and LVH on VERNON inhibitor. He also has a history of iron deficiency anemia possibly secondary to angiodysplastic lesions that was discovered about 15 years ago. Recommendations for him are upper endoscopy to evaluate his upper GI tract and capsule endoscopy. He will also get biochemical workup for his iron deficiency anemia. Orders: Orders Iron Today D64.9 - Anemia, unspecified RENE + Protein Elect, Serum Today D64.9 - Anemia, unspecified Iron Binding Capacity,Total Today D64.9 - Anemia, unspecified LDH Today D64.9 - Anemia, unspecified Ferritin Today D64.9 - Anemia, unspecified Haptoglobin Today D64.9 - Anemia, unspecified Retic Panel Count Today D64.9 - Anemia, unspecified ANCA Today D64.9 - Anemia, unspecified CRP Today D64.9 - Anemia, unspecified Erythrocyte Sed Rate Today D64.9 - Anemia, unspecified Immunoglobulins G/A/M/E Today D64.9 - Anemia, unspecified Anti-Parietal Cell AB, QN Today D64.9 - Anemia, unspecified Gastrin, Serum Today D64.9 - Anemia, unspecified Intrinsic Factor Ab Today D64.9 - Anemia, unspecified Hemoglobinopathy Profile Today D64.9 - Anemia, unspecified OFI Hemoglobin Electrophoresis Today D64.9 - Anemia, unspecified Direct Antiglobulin Alfredo JEFF Today D64.9 - Anemia, unspecified Bilirubin, Direct Today D64.9 - Anemia, unspecified Comprehensive Metabolic Profil Today D64.9 - Anemia, unspecified I have examined the patient and the H&P has been reviewed. There are no clinical changes since date of exam. >
--- NOTE | 2023-10-26 08:14 | OP.CCLET_ITS ---
10/26/2023 Parker Ramires Re : Upper GI endoscopy procedure for Calin Henriquezforrest Ramires This procedure was performed on Thursday, October 26, 2023. My impressions and recommendations are as follows: Impressions : - Normal esophagus. - Oozing gastric ulcer with pigmented material. Treated with a heater probe. - Multiple gastric polyps. Resected and retrieved. Clips were placed. 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 - Normal second portion of the duodenum. Recommendations : - Discharge patient to home. - Resume previous diet. - Continue present medications. - Await pathology results. - Repeat upper endoscopy in 3 months for surveillance. My findings are described in the full procedure note, which is enclosed. If I can be of further assistance, please feel free to contact me at . Sincerely, Alexis Friend, 10/26/2023 8:13:31 AM This report has been signed electronically.
--- NOTE | 2023-10-26 08:14 | OP.EGD_ITS ---
Patient Name: Calin Meade Procedure Date: 10/26/2023 6:37 AM Date of : 1965 Age: 58 Procedure: Upper GI endoscopy Indications: Iron deficiency anemia secondary to chronic blood loss, Iron deficiency anemia Providers: Alexis Chung DO Medicines: Monitored Anesthesia Care Patient Profile: This is a 58 year old male. Refer to note in patient chart for documentation of history and physical. Patient has symptoms. Complications: No immediate complications. Procedure: Pre-Anesthesia Assessment: - Prior to the procedure, a History and Physical was performed, and patient medications and allergies were reviewed. The patient is competent. The risks and benefits of the procedure and the sedation options and risks were discussed with the patient. All questions were answered and informed consent was obtained. Patient identification and proposed procedure were verified by the physician in the pre-procedure area. Mental Status Examination: alert and oriented. Airway Examination: normal oropharyngeal airway and neck mobility. Respiratory Examination: clear to auscultation. CV Examination: normal. Prophylactic Antibiotics: The patient does not require prophylactic antibiotics. Prior Anticoagulants: The patient has taken no anticoagulant or antiplatelet agents. ASA Grade Assessment: II - A patient with mild systemic disease. After reviewing the risks and benefits, the patient was deemed in satisfactory condition to undergo the procedure. The anesthesia plan was to use monitored anesthesia care (MAC). Immediately prior to administration of medications, the patient was re-assessed for adequacy to receive sedatives. The heart rate, respiratory rate, oxygen saturations, blood pressure, adequacy of pulmonary ventilation, and response to care were monitored throughout the procedure. The physical status of the patient was re-assessed after the procedure. After obtaining informed consent, the endoscope was passed under direct vision. Throughout the procedure, the patient's blood pressure, pulse, and oxygen saturations were monitored continuously. The Endoscope was introduced through the mouth, and advanced to the duodenal bulb. The upper GI endoscopy was accomplished without difficulty. The patient tolerated the procedure well. Scope In: 6:47:02 AM Scope Out: 8:05:50 AM Total Procedure Duration Time 1 hour 18 minutes 48 seconds Findings: The examined esophagus was normal. One oozing cratered gastric ulcer with pigmented material was found in the gastric body. The lesion was 6 mm in largest dimension. Coagulation for hemostasis using heater probe was successful. Estimated blood loss was minimal. Multiple 30 mm pedunculated and sessile polyps with bleeding and stigmata of recent bleeding were found in the gastric body, on the greater curvature of the stomach, on the lesser curvature of the stomach and in the gastric antrum. Polypectomy was attempted, initially using a hot snare. Polyp resection was incomplete with this device. This intervention then required a different device and polypectomy technique. The polyp was removed with a lift and cut technique using a cold snare. Resection and retrieval were complete. To prevent bleeding post-intervention, five hemostatic clips were successfully placed. Clip mat man: Molecular Detection. There was no bleeding at the end of the procedure. The second portion of the duodenum was normal. Impression: - Normal esophagus. - Oozing gastric ulcer with pigmented material. Treated with a heater probe. - Multiple gastric polyps. Resected and retrieved. Clips were placed. Clip mat man: Molecular Detection. - Normal second portion of the duodenum. Recommendation: - Discharge patient to home. - Resume previous diet. - Continue present medications. - Await pathology results. - Repeat upper endoscopy in 3 months for surveillance. Procedure Code(s): --- Professional --- 99758, 59, Esophagogastroduodenoscopy, flexible, transoral; with control of bleeding, any method 43443, 51, Esophagogastroduodenoscopy, flexible, transoral; with removal of tumor(s), polyp(s), or other lesion(s) by snare technique CPT copyright 2021 [employer]. All rights reserved. The codes documented in this report are preliminary and upon coal unloader review may be revised to meet current compliance requirements. Alexis Chung DO 10/26/2023 8:13:31 AM This report has been signed electronically. Number of Addenda: 0 Note Initiated On: 10/26/2023 6:37 AM
--- NOTE | 2023-10-26 08:21 | PCM.POST.ANE ---
Anesthesia: Postop Eval I Current Vital Signs Temperature: 97.8 F Pulse Rate: 68 Blood Pressure: 111/74 Respiratory Rate: 16 Pulse Ox: 92 Oxygen Delivery Method: Room Air Assessment Airway patent: Yes Spontaneous unlabored respirations: Yes Mental status: Awake and Calm nausea: No Vomiting: No Anesthesia Complication: No Fluid Hydration Crystalloid volume administer (ml): 900 Total IV fluid infused: 900 Progress Note Anesthesia document: Postop Eval 1 completed: Yes
--- NOTE | 2023-10-26 08:43 | PCM.POSTANE2 ---
Anesthesia Postop Eval I Sum Postop Eval Completion status Anesthesia document: Postop Eval 1 completed: Yes Anesthesia Postop Eval I Summary Anesthesia Postop Eval I Summary: Anesthesia Postop Eval I: Assessment Summary Airway patent Yes 10/26/23 08:22 [email or web address] Spontaneous unlabored Yes 10/26/23 08:22 [email or web address] respirations Mental status Awake,Calm 10/26/23 08:22 [email or web address] nausea No 10/26/23 08:22 [email or web address] Vomiting No 10/26/23 08:22 [email or web address] Anesthesia Postop Eval I: Fluid Summary Crystalloid volume administer 900 10/26/23 08:22 [email or web address] (ml) Colloids volume administered ( ml) Blood Product volume administered (ml) Total IV fluid infused 900 10/26/23 08:22 [email or web address] Anesthesia Postop Eval I: Summary Notes Anesthesia Complication No 10/26/23 08:22 [email or web address] Anesthesia Complication Comment: Post-operative progress note Anesthesia: Postop Eval II Evaluation Mental status: Awake Pain Level: 0 nausea: No Vomiting: No
== END 2023-10-26 09:02 | disposition home or self-care (01) ==
LOC: EN 05:31 → AC 05:32
PROVIDERS: PCP Family Medicine; Referring Provider Family Medicine; Visit Provider Internal Medicine Gastroenterology
PROC: 0DJ08ZZ Inspection of Upper Intestinal Tract, Via Natural or Artificial Opening Endoscopic (ICD-10-PCS; CPT 43235; principal; 2023-10-26 06:25)
DX: K25.9 Gastric ulcer, unspecified as acute or chronic, without hemorrhage or perforation (principal); K31.7 Polyp of stomach and duodenum; D50.9 Iron deficiency anemia, unspecified; K21.9 Gastro-esophageal reflux disease without esophagitis; I10 Essential (primary) hypertension; Z79.899 Other long term (current) drug therapy
CPT/HCPCS: 43255; 43251; 88305; 88342; J7120; J2405

== ENCOUNTER → 2024-01-22 | Outpatient (CLI) | payer OTHER, SELFPAY ==
[2024-01-25 11:08] LABS: Anti-Centromere B Ab <0.2 AI (0.0-0.9); Anti-Chromatin <0.2 AI (0.0-0.9); Anti-Jo <0.2 AI (0.0-0.9); Anti-Scleroderma-70 AB <0.2 AI (0.0-0.9); Anti-dsDNA Ab 1 IU/mL (0-9); RNP Ab <0.2 AI (0.0-0.9); SJOGREN'S Anti-SS-A test < 0.2 AI (0.0-0.9); SJOGREN'S Anti-SS-B test < 0.2 AI (0.0-0.9); Smith Ab <0.2 AI (0.0-0.9)
[2024-01-27 16:06] LABS: ACCA 28 units (0-90); ALCA 24 units (0-60); AMCA 21 units (0-100); Cytoplasmic Ab (C-ANCA) <1:20 titer (Neg:<1:20); IgG, Quant 938 mg/dL (603-1613); Immunoglobulin A 223 mg/dL (90-386); Immunoglobulin E 36 IU/mL (6-495); Immunoglobulin G, Subclass 1 476 mg/dL (248-810); Immunoglobulin G, Subclass 2 388 mg/dL (130-555); Immunoglobulin G, Subclass 3 32 mg/dL (15-102); Immunoglobulin G, Subclass 4 37 mg/dL (2-96); Immunoglobulin M 96 mg/dL (20-172); Perinuclear Ab (P-ANCA) <1:20 titer (Neg:<1:20); gASCA 27 units (0-50)
== END | disposition home or self-care (01) ==
PROVIDERS: PCP Family Medicine; Referring Provider Internal Medicine Gastroenterology; Visit Provider Internal Medicine Gastroenterology
DX: I10 Essential (primary) hypertension (principal); D64.9 Anemia, unspecified; Z86.0100 Personal history of colon polyps, unspecified
CPT/HCPCS: 36415; 82784; 82785; 82787; 83516; 86036; 86037; 86225; 86235; 86671

== ENCOUNTER → 2024-08-26 | Outpatient (CLI) | payer OTHER, SELFPAY ==
--- NOTE | 2024-08-26 13:56 | ECHOD_ITS ---
Reason For Study Reason For Study: HYPERTROPHIC CMP Procedure This was a 2D Doppler, Color Flow transthoracic echocardiogram. Exam performed in department. Left Ventricle Normal LV size. Moderate concentric left ventricular hypertrophy. The left ventricular ejection fraction is 70 %. Stage 1 diastolic dysfunction. No regional wall motion abnormalities noted. Right Ventricle Normal RV size. Normal systolic function. Mitral Valve Systolic anterior motion of the mitral valve. Mild (1+) eccentric mitral valve insufficiency. Tricuspid Valve Normal tricuspid valve. Aortic Valve Trisinus/trileaflet aortic valve. Pulmonic Valve Normal pulmonic valve. Great Vessels Mildly dilated aortic root. The pulmonary artery is normal size. Normal inferior vena cava. Pericardium/Pleural No pericardial effusion. MMode/2D Measurements & Calculations LVIDd: 4.2 cm IVSd: 1.3 cm Ao root diam: 3.5 cm LVIDs: 2.5 cm LVPWd: 1.4 cm RVDd: 3.7 cm FS: 41.5 % LAV(MOD-bp): 40.9 ml LVAd ap4: 31.9 cm2 SV(MOD-sp4): 64.6 ml LAV(MOD-bp) Indexed: 18.6 ml/m2 LVLd ap4: 8.3 cm SI(MOD-sp4): 29.4 ml/m2 LAV(MOD-sp2): 43.2 ml EDV(MOD-sp4): 99.4 ml LAV(MOD-sp4): 38.6 ml EDV(sp4-el): 103.5 ml LVAs ap4: 16.3 cm2 LVLs ap4: 6.9 cm ESV(MOD-sp4): 34.8 ml ESV(sp4-el): 32.8 ml EF(MOD-sp4): 65.0 % EF(sp4-el): 68.3 % SV(sp4-el): 70.7 ml LA dimension(2D): 2.9 cm LA A4 area: 15.8 cm2 RA A4 area: 14.3 cm2 TAPSE: 2.4 cm Time Measurements MV dec time: 0.24 sec Doppler Measurements & Calculations MV E max jose: 85.1 cm/sec Lat Peak E' Jose: 8.2 cm/sec Med Peak E' Jose: 8.0 cm/sec MV A max jose: 89.9 cm/sec E/E' lat: 10.3 E/E' med: 10.6 MV E/A: 0.95 Ao V2 max: 182.7 cm/sec LV V1 max: 156.5 cm/sec PA V2 max: 118.9 cm/sec Ao max P.4 mmHg LV V1 max P.8 mmHg ECHO/Echo Complete Interpretation Summary Normal LV size. Moderate concentric left ventricular hypertrophy. The left ventricular ejection fraction is 70 %. Stage 1 diastolic dysfunction. Mild (1+) eccentric mitral valve insufficiency. Ordering Physician: Merlyn Holly Referring Physician: CHARO LEIGH Performed By: Gabbie Herron RDCS
== END | disposition home or self-care (01) ==
LOC: CVS 13:54
PROVIDERS: PCP Family Medicine; Referring Provider Physician Assistant Medical; Visit Provider Physician Assistant Medical
DX: Q24.8 Other specified congenital malformations of heart (principal); I10 Essential (primary) hypertension
CPT/HCPCS: 93306